=== PATIENT | female | born 1990 | race Two or more races ===

== ENCOUNTER → 2018-01-03 | Outpatient (CLI) | payer MEDICAID ==
[~2018-01-03] MED LIST: Z.0.BCPILL PO
== END ==
LOC: HPND 08:02
PROVIDERS: ATTEND Family Medicine
DX: O36.63X0 Maternal care for excessive fetal growth, third trimester, not applicable or unspecified (principal); O26.842 Uterine size-date discrepancy, second trimester; O09.33 Supervision of pregnancy with insufficient antenatal care, third trimester
CPT/HCPCS: 76805

== ENCOUNTER 2018-02-27 15:25 | Emergency (ER) | payer MEDICAID ==
[2018-02-27 15:45] VITALS: RESP 18
--- NOTE | 2018-02-27 15:48 | PD ---
HPI Chief Complaint Over 40 weeks gestation Date Seen: Feb 27, 2018 Time Seen: 16:15 Travel History International Travel<30 Days: No Contact w/Intl Traveler<30Days: No Known Affected Area: No History of Present Illness HPI 27 yo at 40/2 who was sent from her PCP for evaluation. Patient was seen in clinic and it was recommended she have a NST. She currently denies LOF, vaginal bleeding, contractions or decreased movement. GBS negative. Denies any complications during this . History Past Medical History Medical History: Denies Significant Hx Obstetric History Obstetric History 3 prior term vaginal deliveries Past Surgical History Surgical History: No Previous Surgery Family History Family History: Negative Social History Alcohol Use: No Tobacco Use: No Substance Abuse: No Allergies-Medications (Allergen,Severity, Reaction): Coded Allergies: No Known Allergies (Verified , 07/02/10) Home Meds Reported Medications Miscellaneous ( Control Pills) Tab, 1 TAB PO DAILY 05/14/10 Review of Systems Except as stated in HPI: all other systems reviewed are Neg Physical Exam Narrative GENERAL: Well-nourished, well-developed patient. SKIN: Warm and dry. HEAD: Normocephalic and atraumatic. EYES: No scleral icterus. No injection or drainage. ENT: No nasal drainage noted. Mucous membranes pink. Airway patent. NECK: Supple, trachea midline. No JVD. CARDIOVASCULAR: Regular rate and rhythm without murmurs, gallops, or rubs. RESPIRATORY: Breath sounds equal bilaterally. No accessory muscle use. ABDOMEN/GI: Abdomen soft, non-tender, bowel sounds present, no rebound, no guarding Gravid to 40 weeks size GENITOURINARY: External Genitalia: intact and normal in appearance Cervix: posterior Dilatation: 4 Effacement: 70 Station: -2 Presentation: vertex Membranes: intact Uterine Contractions: Sporadic but every 5-7 minutes FHT's: Category: 1 Baseline: 125 Reactive: yes Variability: moderate Decels: none EXTREMITIES: No cyanosis or edema. BACK: Nontender without obvious deformity. No CVA tenderness. NEUROLOGICAL: Awake and alert. Motor and sensory grossly within normal limits. Five out of 5 muscle strength in all muscle groups. Normal speech. MDM Plan 27 yo at 40/2 sent to the OB ED for evaluation. GBS negative. -Reactive NST, negative contraction stress test - /-2 on exam -She is having occasional asymptomatic contractions but nothing consistent -Will schedule for induction on 03/01 at 0600. Patient instructed to return if she starts having more consistent, painful contractions or if her water breaks. Diagnosis Diagnosis: Primary Impression: 40 weeks gestation of Additional Impression: NST (non-stress test) reactive Disposition: 01 DISCHARGE HOME Condition: Good Ranjit Jaquez MD R1 Feb 27, 2018 15:48
== END 2018-02-27 16:48 | disposition home or self-care (01) ==
LOC: HOBED 15:25
DX: O47.1 False labor at or after 37 completed weeks of gestation (principal); Z3A.40 40 weeks gestation of pregnancy
CPT/HCPCS: 59025